=== PATIENT | female | born 1995 | race Caucasian/White ===

== ENCOUNTER 2018-04-15 15:04 | Outpatient (CLI) | payer OTHER ==
--- NOTE | 2018-04-15 16:40 | Ultrasound Report ---
Reason: ENCOUNTER FOR TEST,RESULT POSITIVE Procedure Date: 04/15/2018 Accession Number: [id number] / [id number] Procedure: US - OB First Trimester CPT Code: FULL RESULT: EXAM: FIRST TRIMESTER OBSTETRIC ULTRASOUND (Less than 11 weeks) EXAM DATE: 04/15/2018 04:16 PM. CLINICAL HISTORY: ENCOUNTER FOR TEST,RESULT POSITIVE. LMP: Unknown. COMPARISONS: None. TECHNIQUE: Transabdominal and transvaginal ultrasound examination with static image documentation. CLINICAL DATES: EGA 7 weeks 4 days with JOHNNIE 11/28/2018 based on LMP. ASSESSMENT: Gestational Sac: Single intrauterine. Mean gestational sac diameter: 25.7 mm = 7 weeks 3 days. Embryo: CRL (crown-rump length) 78 mm = 6 weeks 5 days. Cardiac activity: 144 beats per minute. Yolk sac: 3.5 mm. Amniotic fluid: Not accurately assessed at this gestational age. Early placenta: Not visible at this gestational age. Other: No perigestational fluid collection demonstrated. MATERNAL STRUCTURES: Uterus: Anteverted/Retroverted. Unremarkable. Cervix: Closed. Right Ovary/Adnexa: The ovary measures 2.5 x 1.6 x 1.4 cm, volume 4 cc. Unremarkable. Left Ovary/Adnexa: The ovary measures 2.9 x 1.9 x 1.7 cm, volume 5 cc. Free Fluid: None. Likely corpus luteum.. Other: None. IMPRESSION: 1. Single viable intrauterine at EGA 6 weeks 5 days with JOHNNIE 12/04/2018 based on crown-rump length, which is concordant with clinical dates. 2. Assigned dating is JOHNNIE 7 weeks 4 days based on LMP. YASMEEN
== END 2018-04-15 15:05 | disposition home or self-care (01) ==
LOC: DI 15:04
PROVIDERS: ATTEND Obstetrics & Gynecology
DX: Z32.01 Encounter for pregnancy test, result positive (principal)
CPT/HCPCS: 76801; 76817

== ENCOUNTER 2018-05-01 08:00 | Outpatient (CLI) | payer OTHER ==
[2018-05-02 15:30] LABS: MUDS CUTOFF CONCENTRATIONS CUTOFF CONC BELOW:
[2018-05-02 16:10] LABS: AMPHETAMINE SCREEN,URINE NEGATIVE (NEGATIVE); BENZODIAZEPINES SCREEN, URINE NEGATIVE (NEGATIVE); COCAINE SCREEN URINE NEGATIVE (NEGATIVE); METHADONE SCREEN, URINE NEGATIVE (NEGATIVE); METHAMPHETAMINES SCREEN, URINE NEGATIVE (NEGATIVE); OPIATE SCREEN, URINE NEGATIVE (NEGATIVE); OXYCODONE SCREEN, URINE NEGATIVE (NEGATIVE); PROPOXYPHENE SCREEN, URINE NEGATIVE (NEGATIVE); TRICYCLIC ANTIDEPRESSANT,URINE NEGATIVE (NEGATIVE)
== END 2018-05-01 23:59 ==
LOC: LAB.R 08:00
PROVIDERS: ATTEND Obstetrics & Gynecology
DX: Z34.81 Encounter for supervision of other normal pregnancy, first trimester (principal)
CPT/HCPCS: 80306

== ENCOUNTER 2018-05-13 08:00 | Outpatient (CLI) | payer OTHER ==
[2018-05-13 19:01] LABS: BASOPHILS % (AUTO) 0.4 %; EOSINOPHILS % (AUTO) 0.4 %; HGB - HEMOGLOBIN 12.6 g/dL (12.0-16.0); LYMPHOCYTES # (AUTO) 1.8 10^3/uL (1.5-3.5); LYMPHOCYTES % (AUTO) 22.3 %; MEAN CORPUSCULAR HEMOGLOBIN 33.4 pg (27.0-31.0); MEAN CORPUSCULAR HGB CONC 34.4 g/dL (32.0-36.0); MEAN CORPUSCULAR VOLUME 97.1 fL (81.0-99.0); MEAN PLATELET VOLUME 7.5 fL (7.9-10.8); MONOCYTES # (AUTO) 0.5 10^3/uL (0.0-1.0); MONOCYTES % (AUTO) 5.7 %; NEUTROPHILS # (AUTO) 5.7 10^3/uL (1.5-6.6); NEUTROPHILS % (AUTO) 71.2 %; PLT - PLATELET COUNT 227 10^3/uL (130-450); RED BLOOD COUNT 3.77 10^6/uL (4.20-5.40)
[2018-05-13 19:17] LABS: BILIRUBIN,URINE NEGATIVE (NEGATIVE); GLUCOSE, URINE (UA) NEGATIVE (NEGATIVE); KETONES,URINE (UA) NEGATIVE (NEGATIVE); LEUKOCYTE ESTERASE, URINE NEGATIVE (NEGATIVE); NITRITE,URINE NEGATIVE (NEGATIVE); OCCULT BLOOD,URINE NEGATIVE (NEGATIVE); PH,URINE 6.5 PH (5.0-7.5); PROTEIN,URINE NEGATIVE (NEGATIVE); UROBILINOGEN,URINE 0.2 (NORMAL) E.U./dL (NORMAL)
[2018-05-13 19:27] LABS: BACTERIA,URINE None Seen /HPF (None Seen); CLARITY,URINE CLEAR (CLEAR); RBC,URINE None Seen /HPF (0-5); SQUAMOUS EPITHELIAL CELL,UR FEW Squamous (<= Few)
[2018-05-14 11:12] LABS: HEPATITIS B SURFACE ANTIGEN NON-REACTIVE (NON-REACTIVE)
[2018-05-14 11:14] LABS: HEPATITIS C ANTIBODY NON-REACTIVE (NON-REACTIVE)
[2018-05-14 14:36] LABS: HIV AG/AB 4TH GEN NON-REACTIVE (NON-REACTIVE)
== END 2018-05-13 08:01 | disposition home or self-care (01) ==
LOC: LAB.N 08:00
PROVIDERS: ATTEND Obstetrics & Gynecology
DX: Z34.81 Encounter for supervision of other normal pregnancy, first trimester (principal)
CPT/HCPCS: 36415; 81001; 81599; 85025; 86762; 86803; 86850; 86900; 86901; 87340; 87389

== ENCOUNTER 2018-08-08 07:31 | Outpatient (CLI) | payer OTHER ==
--- NOTE | 2018-08-11 10:24 | Ultrasound Report ---
Reason: ENCTR FOR OTHER SPECIFIED SCREENING Procedure Date: 08/08/2018 Accession Number: [id number] / [id number] Procedure: US - OB Detailed Eval CPT Code: FULL RESULT: EXAM: COMPLETE OBSTETRICAL ULTRASOUND EXAM DATE: 08/08/2018 11:38 AM. CLINICAL HISTORY: anatomic survey. COMPARISON: None. TECHNIQUE: Real-time sonographic evaluation of the fetus performed by the communications coordinator. Multiple office services representative static images were saved for review. DATING: Established EGA 23 weeks 1 day with JOHNNIE 12/04/2018 based on initial ultrasound and obstetric provider. EGA 24 weeks 0 days with JOHNNIE 11/28/2018 based on last menstrual period. EGA 23 weeks 3 days with JOHNNIE 12/02/2018 based on the current ultrasound. GENERAL EVALUATION Gee . Cardiac activity: 139 bpm. movement: Visualized. Presentation: Cephalic. Placenta: Posterior position. No evidence for previa. Umbilical cord: 3 vessel cord. Central placental cord origin. Amniotic fluid: ANDRES 16.2 MVP 5.6 cm. BIOMETRY Bi-Parietal Diameter (BPD): 5.9 cm, 23 weeks 6 days Head Circumference (HC): 21.5 cm, 23 weeks 3 days Abdominal Circumference (AC): 19.2 cm, 23 weeks 6 days Femur Length (FL): 4.0 cm, 22 weeks 6 days Estimated Weight: 602 g, 62nd percentile for 23 weeks 1 day. ANATOMY The intracranial structures, profile, face/nose/lips, spine, 4 chamber heart and outflow tracts, stomach, abdominal wall and cord insertion, diaphragm, kidneys, bladder, and extremities were visualized and demonstrate no abnormality. MATERNAL STRUCTURES Uterus: Unremarkable. Cervix: Long and closed. Transabdominal length 4.7 cm. Right ovary/adnexa: Unremarkable. Left ovary/adnexa: Unremarkable. Free fluid: None. IMPRESSION: 1. Gee live intrauterine with gestational age 23 weeks 1 day based on first ultrasound. 2. Estimated weight is within expected limits for assigned dating. 3. Normal anatomic survey. No anatomic abnormalities are detected at this time. RADIA
== END 2018-08-08 07:32 | disposition home or self-care (01) ==
LOC: DI 07:31
PROVIDERS: ATTEND Nurse Practitioner Obstetrics & Gynecology
DX: Z36.89 Encounter for other specified antenatal screening (principal); Z3A.23 23 weeks gestation of pregnancy
CPT/HCPCS: 76811

== ENCOUNTER 2018-09-22 07:34 | Outpatient (CLI) | payer OTHER ==
[2018-09-22 09:06] LABS: BASOPHILS % (AUTO) 0.5 %; EOSINOPHILS % (AUTO) 0.6 %; HGB - HEMOGLOBIN 11.1 g/dL (12.0-16.0); LYMPHOCYTES # (AUTO) 1.4 10^3/uL (1.5-3.5); LYMPHOCYTES % (AUTO) 16.3 %; MEAN CORPUSCULAR HEMOGLOBIN 34.1 pg (27.0-31.0); MEAN CORPUSCULAR HGB CONC 34.9 g/dL (32.0-36.0); MEAN CORPUSCULAR VOLUME 97.7 fL (81.0-99.0); MEAN PLATELET VOLUME 6.9 fL (7.9-10.8); MONOCYTES # (AUTO) 0.6 10^3/uL (0.0-1.0); MONOCYTES % (AUTO) 6.8 %; NEUTROPHILS # (AUTO) 6.3 10^3/uL (1.5-6.6); NEUTROPHILS % (AUTO) 75.8 %; PLT - PLATELET COUNT 180 10^3/uL (130-450); RED BLOOD COUNT 3.26 10^6/uL (4.20-5.40); RED CELL DISTRIBUTION WIDTH 12.6 % (12.0-15.0); WHITE BLOOD COUNT 8.3 x10^3/uL (4.8-10.8)
== END 2018-09-22 07:35 | disposition home or self-care (01) ==
LOC: LAB 07:34
PROVIDERS: ATTEND Registered Nurse
DX: Z34.90 Encounter for supervision of normal pregnancy, unspecified, unspecified trimester (principal)
CPT/HCPCS: 36415; 82950; 85025; 86850

== ENCOUNTER 2018-09-29 08:19 | Outpatient (CLI) | payer OTHER | END 2018-09-29 08:20 | LOC: LAB 08:19 | PROVIDERS: ATTEND Nurse Practitioner Obstetrics & Gynecology | DX: O99.810 Abnormal glucose complicating pregnancy (principal) | CPT/HCPCS: 36415; 82951; 82952 ==

== ENCOUNTER 2018-11-07 13:32 | Outpatient (CLI) | payer OTHER | END 2018-11-07 23:59 | disposition home or self-care (01) | LOC: LAB.R 13:32 | PROVIDERS: ATTEND Nurse Practitioner Obstetrics & Gynecology | DX: Z36.85 Encounter for antenatal screening for Streptococcus B (principal); Z34.90 Encounter for supervision of normal pregnancy, unspecified, unspecified trimester | CPT/HCPCS: 87491; 87591; 87797 ==

== ENCOUNTER 2018-11-10 08:00 | Outpatient (CLI) | payer OTHER ==
[2018-11-12 11:12] LABS: HEPATITIS C ANTIBODY NON-REACTIVE (NON-REACTIVE)
[2018-11-12 13:11] LABS: HIV AG/AB 4TH GEN NON-REACTIVE (NON-REACTIVE)
[2018-11-13 12:51] LABS: HSV 1 IGG TYPE SPECIFIC AB <0.90 index; HSV 2 IGG TYPE SPECIFIC AB <0.90 index
== END 2018-11-10 23:59 | disposition home or self-care (01) ==
LOC: LAB.N 08:00
PROVIDERS: ATTEND Nurse Practitioner Obstetrics & Gynecology
DX: Z34.90 Encounter for supervision of normal pregnancy, unspecified, unspecified trimester (principal)
CPT/HCPCS: 36415; 81599; 86592; 86695; 86696; 86803; 87389

== ENCOUNTER 2018-12-05 13:59 | Inpatient (IN) | payer OTHER ==
[2018-12-05] MEDS ORDERED: OXYTOCIN/SODIUM CHLORIDE 500 ML IV PRN (14:33)
[2018-12-05] MEDS ORDERED: ONDANSETRON 4 MG/2 ML VIAL IVP PRN ×2 (14:33→23:55)
[2018-12-05] MEDS ORDERED: fentaNYL 100 MCG/2 ML VIAL IVP PRN (14:33)
[2018-12-05] MEDS ORDERED: SODIUM CHLORIDE FLUSH 0.9% 10 ML SYRINGE IVP PRN (14:33)
--- NOTE | 2018-12-05 14:43 | HISTORY & PHYSICAL EXAMINATION ---
Admit History - Visit Reason Visit Reason: Other (41 weeks' gestation) - : 1 Parity: 0 Premature: 0 Ectopic: 0 : 0 Care: positive: [facility] (beginning @ 10 weeks' gestation, x14 total visits) Risk/History: positive: None Complications This : positive: None Smoking Status: Never smoker - Mother's Labs Mother's Blood Type: positive: A Mother's RH: positive: Positive GBS: positive: Group B Step Negative Rubella Status: positive: Immune Review of Systems - Constitutional Constitutional: reports: Fatigue - Eyes Eyes: denies: Spots in vision, Vision loss - Cardiovascular Cariovascular: denies: Irregular heart rate, Palpitations, Chest pain, Edema, Exertional dyspnea - Respiratory Respiratory: denies: Cough, SOB at rest, SOB with exertion - Gastrointestinal Gastrointestinal: denies: Abdominal pain, Constipation, Diarrhea, Change in bowel habits, Nausea, Vomiting - Genitourinary Genitourinary: reports: Frequency. denies: Dysuria, Urgency - Musculoskeletal Musculoskeletal: denies: Muscle pain, Back pain - Integumentary Integumentary: denies: Rash, Pruritis, Lesions - Neurological Neurological: denies: General weakness, Focal weakness, Headache - Psychiatric Psychiatric: reports: Anxiety. denies: Depression Physical - Abdominal Exam Contraction Frequency (min/apart): rare Uterine Resting Tone: positive: Soft - Monitoring Heart Rate Baseline: 140 Strip Review: positive: Category I - Presentation Presentation: positive: Vertex - Vaginal Exam Membranes: positive: Membranes intact Dilation (in cm): 1-2 Effacement (%): 75 Station: positive: 0 Cervical Position: positive: Posterior - Speculum Exam Speculum Exam Performed: positive: No Findings: negative: Gross leak - Other Notes Labor Progress Note/Additional Text: Larisa Ornelas is a 23 y/o @ 41 weeks' gestation by LMP dating, consistent w/ (w/in 5 days) 7 week US. She received consistent care throughout the course of her & had screening labs that were remarkable only for elevated 1-hr gtt, followed by normal 3-hr gtt. She screened negative for GBS @ 36 weeks' gestation. She has no remarkable medical or surgical hx & NKDA. She takes no medications apart from PNV & DHA. She requests IOL @ this time & desires misoprostol IOL, full PARQ was held & informed consent obtained. PMH: Unremarkable; subclinical anxiety PSH: none OBHX: Primiparous GYNHX: no hx STI, no abnormal pap SOCHX: to Tony, denies DV; denies ETOH/drugs/tobacco. Parents visiting from [place]; involved & very supportive FAMHX: Non-contributory PE: GEN: AAOX3, NAD WA gravid female HEENT: Grossly normocephalic, atraumatic RESP: CTA b/l t/o CARDIAC: RRR nls1s2, no murmur ABD: Gravid, NT; lie longitudinal, presentation cephalic; efw: 7# OB: EFM bl 140bpm, +accels, no decels, mod chato; toco: rare contraction; sve: 1- 2/75/0, posterior, soft, IBOW : no lesions, physiologic d/c, no bleeding MS: FROM t/o, no deformity/edema/erythema SKIN: warm, well-perfused, c/d/i, no lesion NEURO: no focal deficit PSYCH: moderate anxiety; feels frustrated that the IOL process was delayed, eager to be in labor, otherwise appropriate mood & affect; & parents @ bedside, involved & very supportive. Plan for Labor - Plan For Labor I expect patient to be DC'd or transferred within 96 hours.: Yes Plan for Labor: 23 y/o @ 41 weeks' gestation by LMP, consistent w/ first trimester US Desires IOL Cervical status unfavorable FHTs cat I GBS negative, IBOW Adequate pain control w/o analgesia/anesthesia Uncomplicated gestation 1. Admit to inpatient, given EGA 2. Misoprostol 50mcg buccal misoprostol q 4 hours per protocol 3. Reviewed pain management desires; pt w/ intent to have epidural, may have at any point, as desired, aware of pain management options 4. Reviewed process of cervical ripening & IOL; no need for SVE prior to subsequent administration of misoprostol & minimize SVE generally but certainly s/p ROM 5. Reassess cervical status w/ clear clinical indication only 6. If necessary & desired, may have mild sleep aid (NOT Ambien) this pm to assist w/ rest
[2018-12-05] MEDS: LACTATED RINGERS 1,000 ML IV SCH ×2 (15:00→22:29)
[2018-12-05] MEDS: miSOPROStol 100 MCG TABLET BC SCH ×2 (15:03→21:57)
[2018-12-05 15:18] LABS: BASOPHILS % (AUTO) 0.5 %; EOSINOPHILS % (AUTO) 0.5 %; HGB - HEMOGLOBIN 10.3 g/dL (12.0-16.0); LYMPHOCYTES # (AUTO) 1.6 10^3/uL (1.5-3.5); MEAN CORPUSCULAR HEMOGLOBIN 30.9 pg (27.0-31.0); MEAN CORPUSCULAR VOLUME 90.8 fL (81.0-99.0); MEAN PLATELET VOLUME 7.2 fL (7.9-10.8); MONOCYTES # (AUTO) 0.7 10^3/uL (0.0-1.0); NEUTROPHILS # (AUTO) 6.4 10^3/uL (1.5-6.6); PLT - PLATELET COUNT 210 10^3/uL (130-450); RED BLOOD COUNT 3.35 10^6/uL (4.20-5.40); RED CELL DISTRIBUTION WIDTH 13.1 % (12.0-15.0); WHITE BLOOD COUNT 8.8 x10^3/uL (4.8-10.8)
[2018-12-05] MEDS ORDERED: SODIUM CHLORIDE FLUSH 0.9% 10 ML SYRINGE IVP SCH (17:00)
--- NOTE | 2018-12-05 19:30 | PROVIDER PROGRESS NOTE ---
Labor Progress Note - Uterine Monitoring Uterine Monitoring Mode: positive: External toco Contraction Frequency (min/apart): 2-3 min per RN Contraction Intensity: positive: Moderate Uterine Resting Tone: positive: Soft - Monitoring Heart Rate Baseline: 135 Heart Rate Variability: positive: Moderate (6-25 bmp) Accelerations: positive: Present, 15x15 Decelerations: positive: None Strip Review: positive: Category I - Vaginal Exam Dilation (in cm): deferred - Labor Progress Note Labor Progress Note/Additional Text: TC from bedside RN, Olesya, who reports that pt is jose q 2-3 min x 60 seconds, palpably moderate, no SVE performed secondary to no indication. No LOF/VB. Pt tolerating contractions well, FHTs baseline 135bpm, +accels, no decels, mod chato. Family @ bedside, supportive. She requests direction w/ administration of misoprostol @ this time. Instructed to hold for now & observe, administer if contractions become erratic or are occurring q4 minutes or less frequently. Articulated full understanding & had no questions or concerns.
[2018-12-05] MEDS ORDERED: fent/BUPIV 2 MCG/0.125% 250 ML EP ONE (23:06)
--- NOTE | 2018-12-05 23:51 | ANESTHESIA ---
Pre-Anesthesia VS, & Labs - Diagnosis Active labor - Procedure Continuous labor epidural Height 5 ft 4 in Weight (kg) 77.111 kg - NPO Other (ice chips since 1700) - Is Patient ?: Yes - Lab Results Current Lab Results: Laboratory Tests 12/05/18 14:50: WBC 8.8, RBC 3.35 L, Hgb 10.3 L, Hct 30.4 L, MCV 90.8, MCH 30.9, MCHC 34.0, RDW 13.1, Plt Count 210, MPV 7.2 L, Neut # (Auto) 6.4, Lymph # (Auto) 1.6, Gibson # (Auto) 0.7, Eos # (Auto) 0.0, Baso # (Auto) 0.0, Absolute Nucleated RBC 0.00, Nucleated RBC % 0.0 Fish Bones: 12/05/18 14:50 Home Medications and Allergies Active Medications Acetaminophen (Tylenol) 650 mg PO Q6H PRN PRN Reason: Pain or Fever Fentanyl (Fentanyl) 100 mcg IVP Q1H PRN PRN Reason: PAIN Lactated Ringer's (Lr) 1,000 mls @ 100 mls/hr IV .Q10H [facility] Last Admin: 12/05/18 22:29 Dose: 999 mls/hr Oxytocin/Sodium Chloride (Pitocin/Sodium Chloride) 500 mls @ 999 mls/hr IV PRN PRN; Protocol PRN Reason: POST- HEMORR PREVENTION Misoprostol (Cytotec) 50 mcg BC Q4HR [facility] Last Admin: 12/05/18 21:57 Dose: Not Given Ondansetron HCl (Zofran Inj) 4 mg IVP Q4HR PRN PRN Reason: Nausea / Vomiting Sodium Chloride (Normal Saline Flush 0.9%) 10 ml IVP 0100,0900,1700 [facility] Sodium Chloride (Normal Saline Flush 0.9%) 10 ml IVP PRN PRN PRN Reason: NEEDED PER PROVIDER ORDERS Allergies/Adverse Reactions: Allergies Allergy/AdvReac Type Severity Reaction Status Date / Time No Known Drug Allergies Allergy Verified 12/05/18 15:02 Anes History & Medical History - Anesthetic History Anesthesia Complications: reports: No previous complications Family history of Anesthesia Complications: Denies Family history of Malignant Hyperthermia: Denies - Medical History Cardiovascular: reports: None Pulmonary: reports: None Gastrointestinal: reports: None Urinary: reports: None Neuro: reports: None Musculoskeletal: reports: None Endocrine/Autoimmune: reports: None Blood Disorders: reports: None Skin: reports: None Smoking Status: Never smoker Psychosocial: reports: No issues indicated - Surgical History Orthopedic: ACL reconstruction, Arthroscopic surgery - Obstetrical History : 1 Parity: 0 Events: positive: None Complications: positive: None Exam General: Alert, Oriented x3, Cooperative, No acute distress Dental: WNL Mouth Opening: Greater than 4 Fingerbreadths Neck Mobility: Normal Mallampati classification: I Thyromental Distance: greater than 6 cm Plan Anesthesia Type: Epidural Consent for Procedure(s) Verified and Reviewed: Yes Code Status: Attempt Resuscitation ASA classification: 2-Mild systemic disease Is this case an emergency?: Yes (patient in active labor at 2300)
[2018-12-05] MEDS ORDERED: fent/BUPIV 2 MCG/0.125% 250 ML EP PRN (23:53)
[2018-12-05] MEDS ORDERED: ePHEDrine 50 MG/ML VIAL IVP PRN (23:55)
[2018-12-05] MEDS ORDERED: METOCLOPRAMIDE 10 MG/2 ML VIAL IVP PRN (23:55)
[2018-12-05] MEDS ORDERED: LACTATED RINGERS 500 ML IV ONE (23:55)
[2018-12-05] MEDS ORDERED: NALOXONE 0.4 MG/ML VIAL IVP PRN (23:55)
[2018-12-05] MEDS ORDERED: NALBUPHINE 10 MG/ML AMP IVP PRN (23:55)
[2018-12-05] MEDS ORDERED: diphenhydrAMINE INJ 50 MG/ML VIAL IVP PRN (23:55)
[2018-12-06] MEDS: LACTATED RINGERS 1,000 ML IV SCH ×3 (01:15→15:31)
[2018-12-06] MEDS: miSOPROStol 100 MCG TABLET BC SCH (03:02)
--- NOTE | 2018-12-06 10:28 | PROVIDER PROGRESS NOTE ---
Labor Progress Note - Labor Progress Note Labor Progress Note/Additional Text: TC from bedside RN on NOC; reports pt jose q2-3 minutes x60 seconds, coping well w/ discomfort; RN will continue to hold misoprostol. Reports BL 135bpm, occ variable to brayan in 110s w/ spontaneous return to baseline <60 seconds, mod chato, + accels. No SVE. Will hold misoprostol for now & administer if contractions 4 or more minutes apart. RN articulated full understanding & has no questions/concerns.
--- NOTE | 2018-12-06 10:28 | PROVIDER PROGRESS NOTE ---
Labor Progress Note - Labor Progress Note Labor Progress Note/Additional Text: TC from am shift RN with update: pt provided epidural for discomfort overnight, comfortable w/ epidural in place; reportedly evaluated @ 0300 by RN, w/ cervical change to 3cm, misoprostol 2nd dose administered @ that time; reportedly had dec el x2.5 minutes to 80s @ 0530, no report to me by NOC RN. Per bedside RN now, baseline 145bpm, +accels, occ chato decels, non-repetitive, +moderate variability, reports UCs q 2-5 minutes. She will assess cervical status now; pt BOW still intact. Will await contact re: cervical status & make plan from there.
--- NOTE | 2018-12-06 10:42 | PROVIDER PROGRESS NOTE ---
Labor Progress Note - Uterine Monitoring Uterine Monitoring Mode: positive: IUPC Contraction Frequency (min/apart): 2-5 Contraction Intensity: positive: Moderate Uterine Resting Tone: positive: Soft - Monitoring Monitor Mode: positive: Spiral electrode Heart Rate Baseline: 145 Heart Rate Variability: positive: Moderate (6-25 bmp) Accelerations: positive: Present, 15x15 Decelerations: positive: None Strip Review: positive: Category I - Vaginal Exam Dilation (in cm): 5 Effacement (%): 75 Station: 0 Cervical Position: Anterior - Labor Progress Note Labor Progress Note/Additional Text: S: Larisa is comfortable w/ her epidural in place. Her family is preent @ the bedside & is involved & supportive. She was able to sleep some last night O: VSS EFM: BL 145bpm +accels, no decels, mod chato TOCO: tracing contractions consistently q 2-5 minutes, unclear intensity & no cervical change x9 hours per RN; AROM for copious CAF, cervical change immediately to 4-5cm, and then 5cm thereafter, IUPC placed w/o incident SVE: 5/7/5/0, position KISHAN A: 23 y/o @ 41w1d by LMP consistent w/ first trimester US, induction of labor s/p effective misoprostol cervical ripening x2 doses over a period of 19 hours, cervical status now favorable Cervical change effected w/ AROM GBS neg, CAF FHTs cat I Adequate pain control w/ epidural anethesia P: 1. IUPC placed to determine adequacy of contraction pattern & need for additional augmentation; will initiate Pitocin infusion & titrate per protocol if MVU <200 2. Reassess cervical status x4 hours, earlier PRN--minimize to clinically necessary, given ROM 3. Reviewed optimal maternal positioning 4. Encouraged maternal rest 5. Reviewed plan of care at bedside w/ RN, pt's partner & pt; all in agreement, without concerns.
--- NOTE | 2018-12-06 11:00 | PROVIDER PROGRESS NOTE ---
Labor Progress Note - Labor Progress Note Labor Progress Note/Additional Text: TC from RN to update as to patient's cervical status: /-3, firm per RN; IBOW. Will evaluate.
[2018-12-06] MEDS ORDERED: OXYTOCIN/SODIUM CHLORIDE 500 ML IV SCH (12:00)
[2018-12-06] MEDS ORDERED: LIDOCAINE-MPF 1% 30 ML VIAL ONE (17:07)
--- NOTE | 2018-12-06 19:41 | PROVIDER PROGRESS NOTE ---
Labor Progress Note - Labor Progress Note Labor Progress Note/Additional Text: TC from RN to relay pt status; she reports pt is 6cm/100/0-+1, Pitocin infusing @5mU/min, IUPC w/ 150MVU, FHTs cat I w/ baseline 135bpm, +accels, no decels, mod chato. Pt resting comfortably w/ her epidural in place & family @ bedside, suppor tive. Will reassess x4 hours, earlier PRN.
--- NOTE | 2018-12-06 19:41 | PROVIDER PROGRESS NOTE ---
Labor Progress Note - Labor Progress Note Labor Progress Note/Additional Text: TC from bedside RN to convey pt status update: had some discomfort & RN evaluated, found to be c/c/+1. FHTs cat I. MVU @ 150 w/ Pitocin infusion @ 7mU. Pt w/o sensation of pressure/urge to push. No expulsive effort w/ attempted practice pushing. Will not utilize her TELEPHONE STERILIZER bolus & will labor down x2 hours, then begin pushing--begin pushing w/ urge to push earlier. Reviewed plan of care w/ RN, who concurs & expresses no concerns. Anticipate .
--- NOTE | 2018-12-06 19:48 | DELIVERY NOTE ---
Delivery Note - Labor Labor: positive: Augmented by oxytocin - Delivery Method Delivery Method: positive: Spontaneous vaginal delivery - Presentation Presentation: positive: Vertex, KISHAN - left occiput anterior - Nuchal Cord Nuchal Cord: positive: None - Anesthetic Anesthetic Type: - Amniotic Fluid Description Amniotic Fluid Description: positive: Clear (AROM @ 1019, for a total ruptured duration of 8 hours, 58 minutes, afebrile) - Episiotomy Type Episiotomy Type: positive: None - Laceration Laceration: positive: 2nd degree, Perineal - Suture Suture Type: positive: Vicryl, Chromic Suture Size: positive: 2-0, 3-0 - Delivery Outcome Delivery Outcome: positive: Livebirth - Hull: positive: Placed in direct skin contact with mother, Stimulated, Warmed sex: positive: Female - Cord Cord: positive: 3 vessels - Placenta Placenta: positive: Intact, Spontaneous - Estimated Blood Loss Estimated Blood Loss (in cc): 350 - Post Delivery Events Post Delivery Events: positive: No post delivery events - Delivery Comments (Free Text/Narrative) Delivery Comments (Free Text/Narrative): Larisa Ornelas is a 23 y/o [id number] who presented @ 41 weeks' EGA by LMP consistent w/ first trimester US for cervical ripening w/ misoprostol & subsequent postdates IOL. Larisa received 2 doses of 50mcg buccal misoprostol w/ good effect. She received an epidural for anesthesia. She was found to be persistently unchanged but w/ favorable cervix & AROMed for copious CAF @ 1019; IUPC placed to direct augmentation w/ Pitocin infusion, which was titrated to max infusion rate of 7mU/min. FSE placed to ensure accurate assessment of FHTs. Pt progressed steadily & w/o complication to complete dilatation @ 1557, for a total first stage duration of 5 hours, 46 minutes. FHTs monitored consistently & cat I-II t/o; no evidence of hypoxemia. Labored down x2 hours & then began pushing @ 1840 to achieve viable female in KISHAN position over a 2nd degree perineal laceration @ 1917, for a total 2nd stage duration of 3 hours, 20 minutes. Infant vigorous w/ spontaneous, lusty cry. Placed to maternal abd for drying/stim. Delayed cord clamping until cessation of pulsation, then cord clamped x2 by CNM, cut by FOB. 3VC noted, cord blood obtained. Active management of the 3rd stage of labor w/ Pitocin in IV fluids. Placenta del spont & intact, Blanco, @ 1920, for a total 3rd stage duration of 3 minutes. Fundus firm @ U-1. Vagina & perineum inspected & 2nd degree perineal laceration noted; repaired under epidural anesthesia w/ infiltration of 10mL 1% lidocaine using 2-0 vicryl & 3-0 chromic. Hemostatic & well-approximated. EBL 350mL. Mother & stable, planning to breastfeed. nuzzling @ breast w/in 15 minutes of delivery. Apgars 8/9. Plans to breastfeed.
[2018-12-06] MEDS ORDERED: HYDROCORTISONE 1% CREAM 28 GM TUBE PR PRN (19:51)
[2018-12-06] MEDS ORDERED: WITCH HAZEL/GLYCERIN 1 EACH MED..PAD TOP PRN (19:51)
[2018-12-06] MEDS ORDERED: MAGNESIUM HYDROXIDE 2,400 MG/30 ML UDC PO PRN (19:51)
[2018-12-06] MEDS ORDERED: DOCUSATE SODIUM 100 MG CAPSULE PO SCH (21:00)
[2018-12-07] MEDS: ACETAMINOPHEN 325 MG TABLET PO PRN ×2 (09:35→15:37)
[2018-12-07] MEDS: IBUPROFEN 800 MG TABLET PO SCH ×2 (09:36→15:37)
--- NOTE | 2018-12-07 16:58 | Discharge Plan ---
Discharge Plan Disposition: 01 Home, Self Care Condition: Good Diet: Regular Activity Restrictions: pelvic rest x6 weeks Shower Restrictions: No (NO TUB BATHS) Driving Restrictions: No Weight Bearing: Full Weight Instruction Topics: Vaginal After, Breastfeed How To, Exercises Kegel Additional Instructions or Follow Up instructions: f/u x1 week w/ Radha Andersen CNM, andrea PRN No Smoking: If you smoke, Please STOP! Call for help. Follow-up with: Radha Andersen CNM, SHANNON [Provider Admit Priv/Credential] -
--- NOTE | 2018-12-07 17:00 | DISCHARGE SUMMARY ---
"Discharge Summary Admit Date: 12/05/18 Discharge Date: 12/07/18 Discharging Provider: NICK Code Status: Attempt Resuscitation Condition at Discharge: Good Discharge Disposition: 01 Home, Self Care Discharge Facility Name: [facility] - DIAGNOSES Admission Diagnoses: 41 WEEKS' GESTATION Discharge Diagnoses with Status of Each Condition: - HPI History of Present Illness: LON SAWYER IS A 23 Y/O WHO PRESENTED FOR MISOPROSTOL CERVICAL RIPENING FOR INDUCTION OF LABOR @ 41 WEEKS' GESTATION BY LMP CONSISTENT W/ FIRST TRIMESTER US. SHE RECEIVED 2 DOSES OF BUCCAL MISOPROSTOL & AN EPIDURAL FOR ANESTHESIA. SHE THEN UNDERWENT AROM FOR COPIOUS CAF & IUPC/FSE PLACEMENT TO ALLOW APPROPRIATE TITRATION OF PITOCIN INFUSION FOR AUGMENTATION. SHE PROGRESSED STEADILY TO COMPLETE DILATATION & LABORED DOWN X2 HOURS THEN DELIVERED VAGINALLY OVER A 2ND DEGREE PERINEAL LACERATION W/O COMPLICATION. - CONSULTS | PROCEDURES Consultations: ANESTHESIA Procedures: MISOPROSTOL CERVICAL RIPENING EPIDURAL PLACEMENT AROM IUPC PLACEMENT FSE PLACEMENT PITOCIN AUGMENTATION REPAIR OF 2ND DEGREE PERINEAL LACERATION - HOSPITAL COURSE Hospital Course: , LON IS DOING WELL. SHE IS AMBULATING & VOIDING W/O DIFFICULTY OR DISCOMFORT. SHE DENIES INCONTINENCE OR PAIN. SHE REPORTS MINIMAL LOCHIA RUBRA. SHE IS EXCLUSIVELY W/O DISCOMFORT OR COMPLICATION. SHE PLANS 3 MONTHS OF PP LEAVE & HAS EXCELLENT SOCIAL SUPPORT. SHE IS PASSING FLATUS & TOLERATING A REGULAR DIET. SHE REPORTS ADEQUATE PAIN CONTROL W/O ANALGESIA. SHE IS NOT PLANNING A SHORT INTERPREGNANCY INTERVAL. SHE PLANS CONDOMS FOR PP CONTRACEPTION. SHE IS ABLE TO FULLY ARTICULATE PP WARNING S/SX, INCLUDING PP DEPRESSION S/SX, AND PP AFTERCARE INSTRUCTIONS. SHE IS EAGER TO LEAVE THE HOSPITAL & WILL BE D/C'ED TO [facility] UNTIL HER INFANT IS D/C'ED HOME. - ALLERGIES Allergies/Adverse Reactions: Allergies Allergy/AdvReac Type Severity Reaction Status Date / Time No Known Drug Allergies Allergy Verified 12/05/18 15:02 - MEDICATIONS Home Medications: Ambulatory Orders Medication Instructions Recorded Confirmed Ibuprofen [Motrin] 800 mg PO Q6H tablet 12/07/18 - PHYSICAL EXAM AT DISCHARGE General Appearance: positive: No acute distress, Alert Eyes Bilateral: positive: Normal inspection, PERRL, EOMI Respiratory: positive: Chest non-tender, No respiratory distress, Breath sounds nml Cardiovascular: positive: Regular rate & rhythm, No murmur, No gallop Abdomen: positive: Non-tender, No organomegaly, No distention, Other (FF U-2) Skin: positive: Color nml, No rash, Warm, Dry Extremities: positive: Non-tender, Full ROM, Nml appearance, Pedal edema (TRACE B/L). negative: Calf tenderness, Chicho's sign/cords Neurologic/Psychiatric: positive: Oriented x3, CN's nml (2-12), Motor nml, Sensation nml, Mood/affect nml - LABS Result Diagrams: 12/05/18 14:50 - FOLLOW UP Follow Up: X1 WEEK W/ RENETTA ROMERO CNM, EARLIER PRN - TIME SPENT Time Spent in Discharge (Minutes): 20"
[2018-12-07 18:21] VITALS: BP 117/73
--- NOTE | 2018-12-07 18:22 | Labor Flowsheet ---
Labor Flowsheet Datetime Report Generated by CPN: 12/07/2018 18:22 Datetime: 12/07/2018 18:07 VITAL SIGNS NBP Sys/Kelin/Mean (mmHg): 117 : 73 : 82 Pulse: 80 LaborFlag: Labor Datetime: 12/06/2018 20:34 SpO2 (%): 98 Datetime: 12/06/2018 18:57 Variability: Moderate 6-25 bpm Category: Category II Comments: Decel with pushing STAGE 2 Pushing: Urge to Push Pushing Position: Pushing with Contractions; Pushing Lithotomy Pushing Progress: Descent with Pushing; with Pushing; Pushing Effectively with Contraction s Datetime: 12/06/2018 18:52 FHR Baseline Rate : 135 Accelerations: 15X15 Decelerations: Early Datetime: 12/06/2018 18:37 FHR Baseline Changes: No Baseline Change Preparation for Delivery: Setup for Delivery Stage 2 Comments: Provider preseent Datetime: 12/06/2018 18:00 UTERINE ACTIVITY Monitor Mode: Internal Frequency (min): 4 Quality: Strong Duration (sec): 60 Pattern: Normal: <= 5 Contractions in 10 Minutes Resting Tone IUP (mmHg): 5 ASSESSMENT A Monitor Mode: External US PAIN Pain Scale: 2 Pain Presence: Intermittent Pain Type: Cramping Pain Location: Abdomen Pain Relief Measures: Comfort Measures Pain Coping: Talking Through Contractions Pain Assessment Comments: Pt instructed not to use epidural PEN TESTER button to facilitate urge to push Patient Position/Activity: High Fowlers Comfort Measures: Breathing/Relaxation; Coaching Hygiene: Underpad Changed I/O Interventions: Ice Chips Given Anesthesia Level Check: T10- Umbilicus Datetime: 12/06/2018 17:45 Pitocin Checklist: No More than 5 Uterine Contractions in 10 Minutes for any 20 Minute Interval; Ut erus Palpates Soft between Contractions Contraction Comments: IUPC not working effectively. CTX palp strong Oxygen Method: Room Air Datetime: 12/06/2018 17:30 Stage of : Labor Resting Tone (Palpate): Relaxed VAGINAL EXAM Dilatation (cm): 10.0 Station: 2 Vaginal Exam Comments: No urge to push, poor pushing effort. Provider Reviewed Strip: No Strip Reviewed by: Wyatt COMMUNICATION Communication: Call/Page Placed to Provider Provider Notified (Name): SHANNON Yi Notification Reason: Status Update Communication Comments: Provider notified of exam after one hour of upright positioning, and no use of the epidural pt controll. Pt pushing effort improved somewhat, however still quite weak. No urg e to push yet. Per provider, will continue with uproght positioning x 1 hour and recheck at that michelle e. Pt informed and agrees with decision. Datetime: 12/06/2018 16:15 Intensity IUP (mmHg): 40 Datetime: 12/06/2018 15:57 Actions for Decelerations: Sterile Vaginal Exam; Provider Notified Effacement (%): 100 Exam by: FREYA Patient Care Comments: Pt repositioned to "throne" position to facilitate descent TEACHING Instructional Method: Verbal; Patient Instructed; Family/Support Person Instructed; Verbalized Unde rstanding Plan of Care: Plan of Care Discussed; Vaginal Delivery Labor/Induction: Labor Stages Teaching Comments: Pushing discussed Datetime: 12/06/2018 14:40 MEDICATIONS Pitocin (milliunits): Increased to @ 7 Datetime: 12/06/2018 14:30 [place] Units (mmHg): 135 Datetime: 12/06/2018 13:30 Medication Comments: Should read increased to 3mu Datetime: 12/06/2018 13:19 Cervix, Consistency: Soft Cervix, Position: Midposition Procedures: Sterile Vag Exam Datetime: 12/06/2018 13:00 Temperature (C): 36.8 Pain Goal: 2 MATERNAL ASSESSMENT Level of Consciousness: Fully Conscious Headache: Denies Nausea/Vomiting: Denies Datetime: 12/06/2018 10:26 Monitor Interventions for FHR: Ultrasound Adjusted; FSE Applied Datetime: 12/06/2018 10:15 Membrane Status: Ruptured Membranes Rupture Method: Artificial Amniotic Fluid Color: Clear Amniotic Fluid Amount: Large Amniotic Fluid Odor: Normal Vaginal Bleeding: Normal Show Membrane Comments: IUPC inserted, FSE placed Datetime: 12/06/2018 09:00 Monitor Interventions for UA: [place] Adjusted Datetime: 12/06/2018 07:30 Breath Sounds, Left: Clear and Equal Breath Sounds, Right: Clear and Equal Oxygen Amount (LPM): 10 Datetime: 12/06/2018 05:56 PATIENT CARE IV/Blood Work: IV Bag Number @ 3 Datetime: 12/06/2018 05:00 Temperature Route: Oral Datetime: 12/06/2018 04:00 Respirations: 16 Datetime: 12/06/2018 03:02 Cervical Ripening Agents: Cytotec @ 50 mcg Datetime: 12/05/2018 23:30 Epidural Procedure: Loading Dose Anesthesia Comments: 6cc bolus Datetime: 12/05/2018 23:02 PROCEDURE TIME OUT Procedure Verify: Correct Patient Identity; Correct Side and Site are Marked; Accurate Procedure Co nsent Form; Agreement on Procedure to be Done ANESTHESIA Anesthesia Plans: Epidural Datetime: 12/05/2018 19:40 DTR's/Clonus: DTRs 2+; No Clonus RUQ Epigastric Pain: Denies Datetime: 12/05/2018 19:39 Unit Routine: Call Lopez; Unit Personnel; Monitoring; Diet/Nutrition Services; Medications Pain Management: Epidural; Comfort Measures Related: Activity and Rest
== END 2018-12-07 18:22 | disposition home or self-care (01) | DRG 807 ==
LOC: WFO 13:59 → FBP 14:01 → WFO 14:32 → FBP 14:33
PROVIDERS: ADMIT Registered Nurse; ATTEND Registered Nurse
PROC: 10907ZC Drainage of Amniotic Fluid, Therapeutic from Products of Conception, Via Natural or Artificial Opening (ICD-10-PCS; 2018-12-05)
PROC: 3E0P7VZ Introduction of Hormone into Female Reproductive, Via Natural or Artificial Opening (ICD-10-PCS; 2018-12-05)
PROC: 10E0XZZ Delivery of Products of Conception, External Approach (ICD-10-PCS; principal; 2018-12-06)
PROC: 0KQM0ZZ Repair Perineum Muscle, Open Approach (ICD-10-PCS; 2018-12-06)
DX: O76 Abnormality in fetal heart rate and rhythm complicating labor and delivery (principal); Z37.0 Single live birth; O70.1 Second degree perineal laceration during delivery; Z3A.41 41 weeks gestation of pregnancy
CPT/HCPCS: 85025; A9270; J7120